=== PATIENT | female | born 1960 | race Caucasian/White ===

== ENCOUNTER 2018-07-25 07:25 | Day surgery (SDC) | payer OTHER ==
[2018-07-24 18:57] VITALS: BMI 29.0
[2018-07-25] MEDS ORDERED: LIDOCAINE HCL 1%, 10 MG/ML (20ML VIAL) ONE (09:06)
--- NOTE | 2018-07-25 09:28 | HP ---
History & Physical Update - History History: No Change - Physical Physical: No Change - Assessment Assessment: No Change - Plan Plan: No Change
[2018-07-25] MEDS ORDERED: ceFAZolin SODIUM 1 GM VIAL ONE (10:49)
[2018-07-25] MEDS ORDERED: LIDOCAINE HCL/PF 2% SDV 5ML VIAL ONE (10:49)
[2018-07-25] MEDS ORDERED: KETOROLAC TROMETHAMINE 30 MG/1 ML VIAL ONE (10:49)
[2018-07-25] MEDS ORDERED: SODIUM CHLORIDE 0.9% P/F 10 ML VIAL IJ ONE (10:49)
[2018-07-25] MEDS ORDERED: DEXAMETHASONE SOD PHOSPHATE 4 MG/1 ML VIAL ONE (10:49)
[2018-07-25] MEDS ORDERED: MIDAZOLAM HCL 2 MG/2 ML SINGLE DOSE VIAL ONE (10:50)
[2018-07-25] MEDS ORDERED: ceFAZolin SODIUM 1 GM VIAL IVPB ONE (11:06)
[2018-07-25] MEDS ORDERED: LIDOCAINE HCL 1%, 10 MG/ML (50 mL VIAL) IJ ONE (11:14)
[2018-07-25] MEDS ORDERED: oxyCODONE HCL 5 MG TABLET PO PRN (11:26)
[2018-07-25] MEDS ORDERED: ONDANSETRON 4 MG/2 ML VIAL IVPUSH PRN (11:26)
[2018-07-25] MEDS ORDERED: PROPOFOL 20 ML ONE (11:27)
[2018-07-25] MEDS ORDERED: LACTATED RINGERS SOLUTION 1,000 ML IV SCH (11:30)
[2018-07-25 13:20] VITALS: TEMP 97.8
--- NOTE | 2018-07-25 14:32 | OP ---
DATE OF OPERATION: 07/25/2018 PREOPERATIVE DIAGNOSIS: Right breast ductal carcinoma in situ. POSTOPERATIVE DIAGNOSIS: Right breast ductal carcinoma in situ. PROCEDURE: Right breast wire-localized lumpectomy. SURGEON: Jackie Clinton MD ANESTHESIA: Local with IV sedation. ESTIMATED BLOOD LOSS: 150 mL. DRAINS: None. COMPLICATIONS: None. This was a sterile procedure. INDICATIONS FOR PROCEDURE: Patient presented with a screening mammography that noted clustering microcalcifications in the upper outer right breast. A stereotactic needle biopsy revealed high-grade DCIS. My recommendation was a lumpectomy and procedure was discussed with all the questions answered. PROCEDURE IN DETAIL: Patient brought to [facility] in [place]. Taken down to Breast Imaging where a wire was used to localize the clip and calcifications in the upper outer right breast. Was then brought to the operating room and after IV sedation and IV antibiotics the right breast was prepped and draped in the usual sterile fashion. The area in the upper outer right breast was anesthetized with 1% lidocaine without epinephrine. An incision was made in the upper outer right breast. The wire was used as a guide to get down to the area of interest. This was excised en bloc and tied with a long stitch lateral, short stitch superior, sent as a right breast lumpectomy for a specimen radiograph. Hemostasis assured with electrocautery and ties. The parenchyma approximated with interrupted 2-0 Vicryl. Skin approximated with interrupted 3-0 Vicryl and running 4-0 Prolene. A sterile dressing with Tegaderm, 4 x 4's applied. The specimen radiograph showed the clip and wire to be within the specimen as well as a spiculated density which appeared to have adequate margins on x-ray. This was then sent to Pathology for permanent section in formalin. She tolerated procedure well, was taken to recovery in good condition. Dasia [id number]
[2018-07-25 15:03] VITALS: BP 118/70; PULSE 90
--- NOTE | 2018-07-29 17:02 | PATH ---
Surgical Pathology Report Patient Name: ARTURO PURDY [facility]. Rec. #: [id number] /Age/Gender: 1960 (Age: 57) / F Account: [id number] Location: [facility] SURGICAL Taken: 07/25/2018 Received: 07/25/2018 Reported: 07/29/2018 Physicians: Jackie Clinton M.D. Specimen(s) Received RIGHT BREAST LUMPECTOMY Clinical History DCIS Final Diagnosis RIGHT BREAST, LUMPECTOMY: DUCTAL CARCINOMA IN SITU (DCIS), SHOWING COMEDO, MICROPAPILLARY, AND CRIBRIFORM TYPES, HIGH NUCLEAR GRADE, WITH ASSOCIATED NECROSIS AND CALCIFICATIONS. DCIS PRESENT IN SIX OUT OF TEN SLIDES, MEASURES AT LEAST 1.8CM IN GREATEST DIMENSION. DCIS IS 2 MM FROM THE CLOSEST MARGIN (DEEP). PRIOR BIOPSY SITE CHANGES ARE PRESENT. PATHOLOGY STAGE (pTNM): pTis pNx SEE DCIS CASE SUMMARY BELOW. Comments DCIS of the Breast: Surgical Pathology Cancer Case Summary (Based on AJCC TNM 8 th edition) Procedure _x_ Excision (less than total mastectomy) Specimen Laterality _x_ Right Size (Extent) of DCIS Estimated size (extent) of DCIS (greatest dimension using gross and microscopic evaluation): at least (millimeters): 18mm Number of blocks with DCIS: 6 Number of blocks examined: 10 Histologic Type _x_ Ductal carcinoma in situ Architectural Patterns __x_ Comedo __x_ Cribriform __x_ Micropapillary Nuclear Grade _x_ Grade III (high) Necrosis _x_ Present, central (expansive "comedo" necrosis) Margins _x_ Uninvolved by DCIS Distance from closest margin (millimeters): 2mm Specify closest margin: deep Regional Lymph Nodes _x_ No lymph nodes submitted or found Pathologic Stage Classification (pTNM, AJCC 8th Edition) Primary Tumor (pT) _x_ pTis (DCIS): Ductal carcinoma in situ Microcalcifications _x_ Present in DCIS Biomarker Studies Results of ER and TN studies performed on this specimen (block#4) at [facility] are as follows: ER (clone [id number] mouse monoclonal antibody by [employer]): 0 % nuclear staining (Negative). TN (clone16 mouse monoclonal antibody by [employer]): 0 % nuclear staining (Negative). Formalin fixation is within current ASCO/CAP recommendations for ER, TN and Her2 testing (6-72 hrs). Cold ischemic time is prolonged (1 hour or less is preferable). Negative results must be interpreted with caution as false negatives may occur. Comment: Immunohistochemical stains performed on this specimen (block 4,5,6) and interpreted at [facility] show the following results: smooth muscle myosin heavy chain and p63 show preserved myoepithelial cell layer in the areas of DCIS. Electronically Signed Alice Perez M.D. Gross Description Received fresh on an AccuGrid, labeled "right breast lumpectomy," is a 6.5 x 5.7 x 2.8 cm. kingsley-yellow, irregular, portion of fibroadipose tissue with a needle localization wire present. There is a short suture marking the superior aspect and a long suture marking the lateral aspect, per the surgeon. There is no skin or nipple present. The specimen is inked as follows: superior and lateral blue; inferior green; medial yellow; anterior red; deep black. The specimen is serially sectioned from lateral to medial. Sectioning reveals a 2.0 x 2.0 x 1.4 cm ill-defined focus of firm fibrous tissue at 0.2 cm from the anterior margin and 0.2 cm from the deep margin. Communications Supervisor sections are submitted in 10 cassettes as follows: 1-6-fibrous tissue sequentially submitted from medial to lateral (each with anterior and deep margins); 7-superior margin; 8-inferior margin; 9-lateral margin; 10-medial margin. Time to formalin fixation: 69 minutes Total formalin fixation time: Approximately 6 hours. 07/25/2018 [facility]07/25/2018
== END 2018-07-25 15:03 | disposition home or self-care (01) ==
LOC: JASU-SURG 07:25
PROVIDERS: ATTEND Surgery
PROC: 0HBT0ZX Excision of Right Breast, Open Approach, Diagnostic (ICD-10-PCS; principal; 2018-07-25 11:00)
DX: D05.11 Intraductal carcinoma in situ of right breast (principal)
CPT/HCPCS: 19281; 88307-TC; 88341-TC; 88342-TC; 94760